=== PATIENT | male | born 1955 | race Caucasian/White ===

== ENCOUNTER 2016-11-22 10:03 | Emergency (ER) | payer OTHER, MEDICAID ==
[2016-11-22 10:07] VITALS: BMI 28.1
[2016-11-22] MEDS ORDERED: TORADOL 60 MG VIAL IM ONE (10:53)
--- NOTE | 2016-11-22 10:53 | DR.GENAD ---
HPI - PCP [facility]: [facility] - HPI Comment HPI Comment: PATIENT HAVE HISTORY OF GOUT. STATED HAVING AN ATTACK 4 DAYS AGO. WORSE TODAY. NO FEVER. NO DRAINAGE. - Complaint/Symptoms Chief Complaint Doctors Comments: PAIN, SWELLING AND REDNESS RIGHT GREAT TOE TIMES 4 DAYS. Chief Complaint:: PATIENT STATED THAT HE THINKS HE HAS GOUT IN HIS RIGHT FOOT. - Nurses notes reviewed Nurses Notes Review: Yes - Source History Provided: Patient - Mode of Arrival Mode of Arrival: Ambulatory - Timing Onset of Chief Complaint: 11/18/16 Came on: Gradually - Duration Duration: Constant Duration: Days - Severity Severity: Moderate PMH - PMH Past Medical History: Yes Past Medical History: Coronary Artery Disease, Gout, Hypertension, [place] Past Surgical History: Yes Surgical History: Angioplasty/Stents, Ortho Surgery, Other - Family History History of Family Medical Conditions: Yes Family Medical History: Cancer, [place], Coronary Artery Disease, Hypertension - Social History Does patient currently use any type of tobacco product: Yes Have you used tobacco products in the last 12 months: Yes Type of Tobacco Use: Cigarettes Does any household member use tobacco: No Alcohol Use: Occasionally Do you use any recreational Drugs:: No Lives With: Family Lives Where: Home - infectious screening In the last 2 months have you had wt loss of >10#?: NO Have you had fever, night sweats or hemotysis?: No Have you traveled outside the country in the last 6 months?: No Isolation: Standard ROS - Review of Systems Constitutional: No Symptoms Reported. negative: Fever Eyes: No Symptoms Reported. negative: Eye Pain, Discharge ENTM: No Symptoms Reported. negative: Ear Pain, Nose Discharge, Nose Congestion , Throat Pain Respiratoy: No Symptoms Reported. negative: Productive Cough, Non-Productive Cough, Short of Breath, Wheezing, Hemoptysis Cardiovascular: No Symptoms Reported. negative: Chest Pain Gastrointestinal/Abdominal: No Symptoms Reported. negative: Abdominal Pain, Constipation, Diarrhea, Nausea, Vomiting Genitourinary: No Symptoms Reported. negative: Dysuria, Frequency Neurological: No Symptoms Reported Musculoskeletal: Back Pain, Right, Foot Integumentary: Other (REDNESS MP JOINT RIGHT GREAT TOE.) Hematologic/Lymphatic: No Symptoms Reported Endocrine: No Symptoms Reported All Other Systems: Reviewed and Negative PE - Vital Signs Vitals: Temperature 97.7 F Pulse Rate 93 Respiratory Rate 20 Blood Pressure [Right Arm] 172/84 Blood Pressure 181/88 O2 Sat by Pulse Oximetry 97 - General Limitations: No Limitations General Appearance: Alert - Head Head Exam: Normal Inspection - Eyes Eye exam: Normal Appearance - ENT ENT Exam: Normal External Ear Exam External Ear Exam: Normal External Inspection TM/Canal Exam: Bilateral Normal Nose Exam: Normal Nose Exam Mouth Exam: Normal Inspection Throat Exam: Normal Inspection - Neck Neck Exam: Normal Inspection - Chest Chest Inspection: Symmetric Chest Wall Rise - Respiratory Respiratory Exam: Normal Lung Sounds Bilat Respiratory Exam: Bilateral Clear to Auscultation - Cardiovascular Cardiovascular Exam: Regular Rate, Normal Rhythm, Normal Heart Sounds - Abdominal Exam Abdominal Exam: Normal Bowel Sounds, Soft. negative: Tenderness - Extremities Extremities Exam: Tenderness (RT GREAT TOE RED AND TENDER.) - Back Back Exam: Paraspinal Tenderness - Neurologic Neurological Exam: Alert, Oriented X3 - Psychiatric Psychiatric Exam: Anxious - Skin Skin Exam: Erythema, Other (RT MP GREAT TOE REDNESS AND TENDERNESS.) MDM - Differential Diagnosis Differential Diagnosis: GOUT Course - Treatment Treatment: SEE ORDERS. IM TORAGOL IN ED. PAIN IMPROVING. - Education/Counseling Education/Counseling: Patient, Education Educated On: Diagnosis, Needs for Follow Up - Diagnosis Discharge Problem: Gout - Discharge Plan Disposition: 01 HOME, SELF-CARE Condition: Stable Prescriptions: Indomethacin [Indocin Cap 25 mg] 25 mg PO TID #30 cap Tramadol HCl 50 mg PO Q8H PRN #15 tab PRN Reason: Pain - Follow ups/Referrals Follow ups/Referrals: Pia SALASc [Primary Care Provider] - 3 days - Instructions Instructions: Gout Additional Instructions: RETURN TO ED IF WORSE.
[2016-11-22 11:32] VITALS: BP 172/84
== END 2016-11-22 11:40 | disposition home or self-care (01) ==
LOC: ER 10:16
DX: M10.9 Gout, unspecified (principal)
CPT/HCPCS: 96372; 99282

== ENCOUNTER 2016-12-05 11:15 | Emergency (ER) | payer OTHER, MEDICAID ==
[2016-12-05 11:18] VITALS: BP 164/85; BMI 27.5
--- NOTE | 2016-12-05 11:43 | DR.RASH ---
HPI - Time Seen Time seen: 11:33 - PCP Primary Care Physician: [facility] - HPI Comment HPI Comment: SKIN RASH OVER BUTTOCKS, MORE RIGHT SIDE AND ABDOMEN AND CHEST TIMES 2 WEEKS. HAVE STARTED INDOCIN AND TRAMADIOL BEFORE RASH. TAKING INDOCIN PREVIOUSLY. NO SOB OR THROAT DISCOMFORT. BENADYL NOT HELPING ITCHING.. GOUT ATTACK RESOLVING . - Complaint Chief Complaint:: PT. C/O PAINFUL, ITCHY RED RASH TO GROIN AND THIGHS THAT BEGAN ABOUT 2 WEEKS AGO. Chief Complaint Doctors Comments: SKIN RASH TIMES 2 WEEKS. Onset of Chief Complaint: 11/21/16 - Reviewed Nurses Notes Review: Yes - Source History Provided: Patient - Mode of Arrival Mode of Arrival: Ambulatory - Location Location: Bilateral, Chest, Back, Buttocks, arms, Legs - Quality Quality: Pruritic, Urticarial, Other (MACULOPAPULAR) - Context Circumstances: Spontaneous onset (ON ANTIBIOTIC) - Severity Pain Severity: Moderate - Associated signs and symptoms Associated signs and symptoms: None (GOUT LT BIG TOE/RESOLVING.) PMH - PMH Past Medical History: Yes Past Medical History: Coronary Artery Disease, Gout, Hypertension, [place] Past Surgical History: Yes Surgical History: Angioplasty/Stents, Ortho Surgery, Other - Family History History of Family Medical Conditions: Yes Family Medical History: Cancer, [place], Coronary Artery Disease, Hypertension - Social History Does patient currently use any type of tobacco product: Yes Have you used tobacco products in the last 12 months: Yes Type of Tobacco Use: Cigarettes Does any household member use tobacco: No Alcohol Use: Occasionally Do you use any recreational Drugs:: No Lives With: Alone Lives Where: Home - infectious screening In the last 2 months have you had wt loss of >10#?: NO Have you had fever, night sweats or hemotysis?: No Have you traveled outside the country in the last 6 months?: No Isolation: Standard ROS - Review of Systems Constitutional: No Symptoms Reported Eyes: No Symptoms Reported ENTM: No Symptoms Reported Respiratoy: No Symptoms Reported Cardiovascular: No Symptoms Reported Gastrointestinal/Abdominal: No Symptoms Reported Genitourinary: No Symptoms Reported Neurological: No Symptoms Reported Musculoskeletal: No Symptoms Reported Integumentary: Rash (EXTREMITIES, BUTTOCKS, CHEST AND ABDOMEN.) All Other Systems: Reviewed and Negative PE - Vital Signs Vitals: Temperature 98.2 F Pulse Rate 75 Respiratory Rate 17 Blood Pressure [Right Arm] 172/84 Blood Pressure 164/85 O2 Sat by Pulse Oximetry 97 - General Limitations: No Limitations General Appearance: Alert - Head Head Exam: Normal Inspection - Eyes Eye exam: Normal Appearance - ENT ENT Exam: Normal External Ear Exam External Ear Exam: Normal External Inspection TM/Canal Exam: Bilateral Normal Teeth Exam: Normal Inspection Throat Exam: Normal Inspection - Neck Neck Exam: Trachea Midline - Chest Chest Inspection: Symmetric Chest Wall Rise - Respiratory Respiratory Exam: Normal Lung Sounds Bilat Respiratory Exam: Bilateral Clear to Auscultation - Cardiovascular Cardiovascular Exam: Regular Rate, Normal Rhythm, Normal Heart Sounds - Abdominal Exam Abdominal Exam: Normal Inspection - Extremities Extremities Exam: Normal Inspection - Back Back Exam: Normal Inspection - Neurologic Neurological Exam: Alert, Oriented X3 - Skin Skin Exam: Rash (EXTREMITIES, CHEST AND ABDOMEN, PACULOPAPULAR RASH. FEW HIVES NOTED.) MDM - Differential Diagnosis Differential Diagnosis: Impetigo, Urticaria, Other (RASH, ALLEGIC REACTION) Course - Treatment Treatment: SEE ORDERS. - Education/Counseling Education/Counseling: Patient, Education Educated On: Diagnosis, Needs for Follow Up - Diagnosis Discharge Problem: Rash, Gout - Discharge Plan Disposition: 01 HOME, SELF-CARE Condition: Stable Prescriptions: Hydroxyzine Pamoate [Vistaril] 25 mg PO TID PRN #20 cap PRN Reason: Methylprednisolone Dosepak 4Mg [MEDROL DOSEPAK (4 mg tab x 21)] 1 baldev PO ONCE # 1 baldev - Follow ups/Referrals Follow ups/Referrals: N[facility],None [Primary Care Provider] - 3 days - Instructions Instructions: Rash, Gout Additional Instructions: RETURN TO ED IF WORSE. STOP INDOCIN AND TRAMADOL.
== END 2016-12-05 12:00 | disposition home or self-care (01) ==
LOC: ER 11:26
DX: M10.9 Gout, unspecified (principal); R21 Rash and other nonspecific skin eruption
CPT/HCPCS: 99281; 99282

== ENCOUNTER 2017-06-17 11:42 | Emergency (ER) | payer OTHER, MEDICAID ==
[2017-06-17 11:50] VITALS: BP 167/80; BMI 29.4
--- NOTE | 2017-06-17 12:21 | DR.GENAD ---
HPI - PCP Primary Care Physician: [facility] Comment HPI Comment: HISTORY BELOW. - Complaint/Symptoms Chief Complaint Doctors Comments: OUT OF INDOCIN WHICH HELPWITH SIMILAR FLARE UPS PREVIOUSLY. Chief Complaint:: SEVERE GOUT RIGHT FOOT Self Treatment fo Chief Complaint: GOUT ATTACK FOR SEVERAL DAYS. - Nurses notes reviewed Nurses Notes Review: Yes - Source History Provided: Patient - Mode of Arrival Mode of Arrival: Ambulatory - Timing Onset of Chief Complaint: 06/17/17 Came on: Suddenly - Duration Duration: Constant Duration: Days - Severity Severity: Moderate PMH - PMH Past Medical History: Yes Past Medical History: Coronary Artery Disease, Gout, Hypertension, [place] Past Medical History Comment: HEP C. MELANOMA. PT STATES HE HAS HAD SOME MELANOMA REMOVED FROM HIS BACK, CHEST, UNDER EYE, AND 2 LESIONS REMOVED AROUND HIS HEART Past Surgical History: Yes Surgical History: Angioplasty/Stents, Ortho Surgery, Other Past Surgical History Comment: MELANOMA LESIONS REMOVED - Family History History of Family Medical Conditions: Yes Family Medical History: Cancer, [place], Coronary Artery Disease, Hypertension - Social History Does patient currently use any type of tobacco product: Yes Have you used tobacco products in the last 12 months: Yes Type of Tobacco Use: Cigarettes Does any household member use tobacco: No Alcohol Use: Rarely Do you use any recreational Drugs:: No Lives With: Alone Lives Where: Home - infectious screening In the last 2 months have you had wt loss of >10#?: NO Have you had fever, night sweats or hemotysis?: No Have you traveled outside the country in the last 6 months?: No Isolation: Standard ROS - Review of Systems Constitutional: No Symptoms Reported Eyes: No Symptoms Reported ENTM: No Symptoms Reported Respiratoy: No Symptoms Reported Cardiovascular: No Symptoms Reported Gastrointestinal/Abdominal: No Symptoms Reported Genitourinary: No Symptoms Reported Neurological: No Symptoms Reported Musculoskeletal: Right, Knee, Ankle, Foot Integumentary: Change in Color Hematologic/Lymphatic: No Symptoms Reported Endocrine: No Symptoms Reported All Other Systems: Reviewed and Negative PE - Vital Signs Vitals: Temperature 97.1 F Pulse Rate 75 Respiratory Rate 18 Blood Pressure [Right Arm] 172/84 Blood Pressure 167/80 O2 Sat by Pulse Oximetry 95 - General Limitations: No Limitations General Appearance: Alert - Head Head Exam: Normal Inspection - Eyes Eye exam: Normal Appearance - ENT ENT Exam: Normal External Ear Exam - Neck Neck Exam: Trachea Midline - Chest Chest Inspection: Symmetric Chest Wall Rise - Respiratory Respiratory Exam: Normal Lung Sounds Bilat Respiratory Exam: Bilateral Clear to Auscultation - Cardiovascular Cardiovascular Exam: Regular Rate, Normal Rhythm, Normal Heart Sounds - Abdominal Exam Abdominal Exam: Normal Inspection - Extremities Extremities Exam: Tenderness (TENDERNESS RT GREAT TOE. RT ANKLE AND RT KNEE.) - Back Back Exam: Normal Inspection - Neurologic Neurological Exam: Alert, Oriented X3 - Psychiatric Psychiatric Exam: Normal Affect, Normal Mood - Skin Skin Exam: Erythema MDM - Differential Diagnosis Differential Diagnosis: GOUT Course - Treatment Treatment: SEE ORDERS. - Education/Counseling Education/Counseling: Patient, Education Educated On: Diagnosis, Needs for Follow Up - Diagnosis Discharge Problem: Gout attack Qualifiers: Gout site: multiple sites Gout etiology: unspecified cause Qualified Code(s): M10.9 - Gout, unspecified - Discharge Plan Condition: Stable Prescriptions: Indomethacin [Indocin Cap 25 mg] 25 mg PO TID #30 cap - Follow ups/Referrals Follow ups/Referrals: N[facility],None [Primary Care Provider] - 3 days - Instructions Instructions: Gout, [id number] Additional Instructions: RETURN TO ED IF WORSE.
== END 2017-06-17 12:54 | disposition home or self-care (01) ==
LOC: ER 11:57
DX: M10.9 Gout, unspecified (principal)
CPT/HCPCS: 99281; 99282